=== PATIENT | female | born 1970 | race African-American/Black ===

== ENCOUNTER 2018-11-13 20:12 | Emergency (ER) | payer OTHER | END 2018-11-13 20:15 | disposition left against medical advice (07) | LOC: FSED 20:12 | DX: R51 Headache (principal) ==

== ENCOUNTER 2019-03-24 13:42 | Emergency (ER) | payer OTHER ==
[~2019-03-24] VITALS: Ht 157.5 cm; Wt 100.2 kg
--- NOTE | 2019-03-24 14:55 | Diagnostic Imaging Report ---
CT [facility] HISTORY: Trauma COMPARISON: None. TECHNIQUE: Noncontrast axial scans were obtained from skull base to the vertex. Coronal and sagittal reconstructions obtained from the axial data. One or more of the following dose reduction techniques were used: Automated exposure control, adjustment of the mA and/or kV according to patient size, and/or utilization of iterative reconstruction technique. DISCUSSION: Scalp/Skull: Unremarkable. Brain sulci: Appropriate for patient's age. Ventricles: Normal in size and configuration. No hydrocephalus. Extra-axial spaces: No masses or fluid collections. Parenchyma: No abnormal densities. No mass, hemorrhage, or large vascular territory acute infarct. Dural sinuses: No abnormal densities. Sellar/Suprasellar region: Intact. Skull base: Intact. Incidental findings: Hypoplastic right sphenoid sinus. IMPRESSION: No intracranial abnormalities. Signed by: Dr. Jett Bowman M.D. on 03/24/2019 2:51 PM
[2019-03-24 15:41] VITALS: BP 119/72
== END 2019-03-24 15:44 | disposition home or self-care (01) ==
LOC: FSED 13:42
DX: S00.83XA Contusion of other part of head, initial encounter (principal); W01.0XXA Fall on same level from slipping, tripping and stumbling without subsequent striking against object, initial encounter; Y93.E1 Activity, personal bathing and showering; Y92.002 Bathroom of unspecified non-institutional (private) residence as the place of occurrence of the external cause
CPT/HCPCS: 70450; 99283